=== PATIENT | female | born 2000 | race African-American/Black ===

== ENCOUNTER 2020-03-06 12:40 | Outpatient (CLI) | payer OTHER ==
--- NOTE | 2020-03-06 14:30 | MRI ---
MR of the leftankle without contrast INDICATION: 19-year-old female with stress fracture of the left ankle TECHNIQUE: T1, T2 fat sat, PD fat sat axial in addition to sagittal T1, T2 fat sat and coronal PD fat sat sequences were obtained of the leftankle. COMPARISON: None. FINDINGS: Ligaments: ATFL: Intact. PTFL: Intact. Calcaneofibular ligament: Intact. Syndesmotic ligaments: Intact. Deltoid ligament: Intact. Spring ligament: Intact. Visualized Lisfranc ligament: Intact. Tendons: Peroneal tendons: Intact without tenosynovitis. Posterior tibialis: Intact without tenosynovitis. Flexor digitorum longus: Intact without tenosynovitis. Flexor hallucis longus: Intact without tenosynovitis. Extensor hallucis longus: Intact without tenosynovitis. Tibialis anterior: Intact without tenosynovitis. Extensor digitorum longus: Intact without tenosynovitis. Achilles tendon there is mild tendinosis of the Achilles tendon. Tibiotalar joint: Talar Dome: Intact without evidence of osteochondral defect Joint effusion: None. Subtalar joint: Intact. Bones: There are patchy areas of subcortical T2 hyperintensity involving the posterior medial malleol us and lateral malleolus are intact.. Sinus Tarsi: Normal signal intensity. Plantar fascia: Normal appearing. Visualized intrinsic foot musculature: Normal appearing.. IMPRESSION: 1. Mild Achilles tendinosis. 2. Patchy areas of subcortical T2 hyperintensity involving the posterior medial malleolus as well as the lateral malleolus tip are nonspecific and may reflect some reactive marrow edema due to mild stress or overuse. No visible stress fracture is demonstrated.
== END 2020-03-06 12:41 | disposition home or self-care (01) ==
LOC: BICMRI 12:40
PROVIDERS: ATTEND Family Medicine
DX: M84.372A Stress fracture, left ankle, initial encounter for fracture (principal); M67.874 Other specified disorders of tendon, left ankle and foot; R93.7 Abnormal findings on diagnostic imaging of other parts of musculoskeletal system